=== PATIENT | male | born 1965 | race Hispanic/Latino ===

== ENCOUNTER 2023-05-16 21:48 | Inpatient (IN) | payer OTHER, BC ==
[~2023-05-16] VITALS: Ht 167.6 cm; Wt 88.5 kg
[~2023-05-16 21:48] MED LIST: SODIUM CHLORIDE FLUSH 10 ML SYR IV PRN
[2023-05-16] MEDS ORDERED: ONDANSETRON HCL INJ 2MG/ML 2ML 2 MG/ML VIAL IV STA ×2 (21:57→22:07)
[2023-05-16] MEDS ORDERED: ASPIRIN 325 MG TAB PO ONE (22:00)
[2023-05-16] MEDS ORDERED: ONDANSETRON HCL INJ 2MG/ML 2ML 2 MG/ML VIAL ONE (22:01)
[2023-05-16] MEDS ORDERED: ASPIRIN 81 MG CHEW TAB ONE (22:01)
[2023-05-16 22:08] LABS: BASOPHILS # (AUTO) 0.1 (0.0-0.1); BASOPHILS % 0.5 % (0.0-1.0); EOSINOPHILS # (AUTO) 0.1 (0.0-0.4); EOSINOPHILS % 0.5 % (0.0-6.0); HEMATOCRIT 40.5 % (38.2-49.6); HEMOGLOBIN 14.1 g/dL (14.0-18.0); LYMPHOCYTES # (AUTO) 1.6 (1.0-3.2); LYMPHOCYTES % 16.8 % (18.0-39.1); MEAN CORPUSCULAR HEMOGLOBIN 31.2 pg (28-32); MEAN CORPUSCULAR HGB CONC 34.8 g/dL (31-35); MEAN CORPUSCULAR VOLUME 89.6 fL (81-99); MONOCYTES # (AUTO) 0.4 (0.2-0.8); MONOCYTES % 4.5 % (4.4-11.3); NEUTROPHILS # (AUTO) 7.4 (2.1-6.9); NEUTROPHILS % 77.3 % (38.7-80.0); PLATELET COUNT 289 x10e3/uL (140-360); RED BLOOD COUNT 4.52 x10e6/uL (4.3-5.7)
[2023-05-16] MEDS: SODIUM CHLORIDE 0.9% 1000ML 1,000 ML IV ONE ×2 (22:13→22:17)
[2023-05-16] MEDS ORDERED: SODIUM CHLORIDE 0.9% 1000ML 1,000 ML IV ONE (22:15)
[2023-05-16] MEDS ORDERED: SODIUM CHLORIDE 0.9% 1000ML 2,650 ML IV ONE (22:15)
[2023-05-16 22:17] LABS: INR 1.01; PROTHROMBIN TIME 13.8 seconds (11.9-14.5)
[2023-05-16 22:18] LABS: PARTIAL THROMBOPLASTIN TIME 26.5 seconds (23.8-35.5)
[2023-05-16] MEDS ORDERED: CEFTRIAXONE 1 GM VIAL ONE (22:21)
[2023-05-16 22:37] LABS: ALANINE AMINOTRANSFERASE 29 IU/L (0-55); ALBUMIN 4.7 g/dL (3.5-5.0); ALBUMIN/GLOBULIN RATIO 1.2 (0.8-2.0); ALKALINE PHOSPHATASE 154 IU/L (40-150); ANION GAP 25.6 mmol/L (8-16); BLOOD UREA NITROGEN 77 mg/dL (7-26); BUN/CREATININE RATIO 12 (6-25); CARBON DIOXIDE 16 mmol/L (22-29); CHLORIDE 100 mmol/L (98-107); CREATININE, SERUM 6.64 mg/dL (0.72-1.25); GLUCOSE 132 mg/dL (74-118); SODIUM 136 mmol/L (136-145)
[2023-05-16 22:39] LABS: POTASSIUM 5.6 mmol/L (3.5-5.1)
[2023-05-16 22:54] LABS: LIPASE 116 U/L (8-78)
[2023-05-16] MEDS ORDERED: CALCIUM CHLORIDE 10% 1.36 MEQ/ML 10ML SYR IV STA (23:17)
[2023-05-16] MEDS ORDERED: FUROSEMIDE INJ 10 MG/ML 4 ML VIAL IV ONE (23:30)
[2023-05-16] MEDS ORDERED: ALBUTEROL/IPRATROPIUM 3 ML NEB NEB ONE (23:30)
[2023-05-16] MEDS ORDERED: INSULIN REGULAR, HUMAN 100 UNIT/1 ML IV ONE (23:30)
[2023-05-16] MEDS ORDERED: SOD POLYSTYRENE SULFONATE SUSP 15 GM/60 ML BTL PO ONE (23:30)
[2023-05-16] MEDS ORDERED: DEXTROSE 50% SYRINGE 50 ML IV STA (23:34)
[2023-05-16 23:35] VITALS: PULSE 90; RESP 20; O2SAT 100
[2023-05-16] MEDS ORDERED: CALCIUM CHLORIDE 13.6 MEQ in SODIUM CHLORIDE 0.9% 100 ML IV ONE (23:45)
[2023-05-16 23:50] LABS: AMPHETAMINES SCREEN,URINE NEGATIVE (NEGATIVE); BENZODIAZEPINES SCREEN,URINE NEGATIVE (NEGATIVE); CLARITY,URINE CLEAR (CLEAR); COLOR,URINE YELLOW (YELLOW); KETONES,URINE TRACE (NEGATIVE); LEUKOCYTE ESTERASE ,URINE NEGATIVE (NEGATIVE); NITRITE,URINE NEGATIVE (NEGATIVE); PHENCYCLIDINE SCREEN,URINE NEGATIVE (NEGATIVE); PROTEIN,URINE DIPSTICK 2+ (NEGATIVE); URINE UROBILINOGEN 0.2 mg/dL (0.2 - 1)
[2023-05-16] MEDS ORDERED: SODIUM CHLORIDE 0.9% 100 ML ONE (23:50)
[2023-05-16 23:56] LABS: AMORPHOUS SEDIMENT,URINE FEW (FEW); BACTERIA,URINE FEW /HPF; EPITHELIAL CELLS,URINE FEW /LPF; MUCUS,URINE MODERATE (RARE); RBC,URINE 0-5 /HPF (0-5); WBC,URINE (MAN) 0-5 /HPF (0-5)
[2023-05-17] VITALS (13 sets, daily range): BP systolic 97–116; BP diastolic 51–73; PULSE 63–94; RESP 16–25; TEMP 97.5–98.1; O2SAT 97–100
[2023-05-17] MEDS ORDERED: ONDANSETRON HCL INJ 2MG/ML 2ML 2 MG/ML VIAL IV PRN (01:15)
[2023-05-17] MEDS: SODIUM CHLORIDE 0.9% 1000ML 1,000 ML IV SCH ×2 (01:40→09:13)
[2023-05-17] MEDS ORDERED: LISINOPRIL10 MG PO (04:23)
[2023-05-17] MEDS ORDERED: ATORVASTATIN CA20 MG PO (04:23)
[2023-05-17] MEDS ORDERED: METOPROLOL SUCC25 MG PO (04:23)
[2023-05-17] MEDS ORDERED: ASPIRIN81 MG PO (04:23)
[2023-05-17] MEDS ORDERED: ACETAMINOPHEN 325 MG TAB PO PRN (08:30)
[2023-05-17 08:51] LABS: BASOPHILS % 0.3 % (0.0-1.0); EOSINOPHILS # (AUTO) 0.1 (0.0-0.4); EOSINOPHILS % 1.1 % (0.0-6.0); HEMATOCRIT 35.8 % (38.2-49.6); HEMOGLOBIN 12.2 g/dL (14.0-18.0); LYMPHOCYTES % 20.2 % (18.0-39.1); MEAN CORPUSCULAR HEMOGLOBIN 31.3 pg (28-32); MEAN CORPUSCULAR HGB CONC 34.1 g/dL (31-35); MEAN CORPUSCULAR VOLUME 91.8 fL (81-99); MONOCYTES # (AUTO) 0.5 (0.2-0.8); MONOCYTES % 5.3 % (4.4-11.3); NEUTROPHILS # (AUTO) 7.2 (2.1-6.9); NEUTROPHILS % 72.8 % (38.7-80.0); PLATELET COUNT 208 x10e3/uL (140-360); RED CELL DISTRIBUTION WIDTH 13.2 % (11.7-14.4)
[2023-05-17] MEDS: DOCUSATE SODIUM 100 MG CAP PO SCH (09:13)
[2023-05-17] MEDS: SENNOSIDES 8.6 MG TAB PO SCH (09:13)
[2023-05-17 09:23] LABS: MAGNESIUM 2.4 MG/DL (1.3-2.1)
[2023-05-17 09:26] LABS: ALBUMIN 3.4 g/dL (3.5-5.0); ALBUMIN/GLOBULIN RATIO 1.1 (0.8-2.0); ANION GAP 12.8 mmol/L (8-16); CALCIUM 7.8 mg/dL (8.4-10.2); CREATININE, SERUM 2.8 mg/dL (0.72-1.25); POTASSIUM 4.8 mmol/L (3.5-5.1)
[2023-05-17 09:51] LABS: PHOSPHORUS 4.4 MG/DL (2.3-4.7)
[2023-05-17] MEDS ORDERED: ALLOPURINOL 300 MG TAB PO ONE (11:30)
[2023-05-17] MEDS: SODIUM BICARBONATE 8.4% SYRING 150 ML in DEXTROSE 5% 1,000 ML IV SCH ×2 (12:14→19:20)
[2023-05-17 14:07] LABS: ANION GAP 11.6 mmol/L (8-16); CREATININE, SERUM 1.86 mg/dL (0.72-1.25); POTASSIUM 4.6 mmol/L (3.5-5.1)
[2023-05-18 01:12] VITALS: BP 94/61; PULSE 75; RESP 17; TEMP 98.1; O2SAT 98
[2023-05-18] MEDS: SODIUM BICARBONATE 8.4% SYRING 150 ML in DEXTROSE 5% 1,000 ML IV SCH (04:00)
[2023-05-18 05:25] VITALS: BP 99/61; PULSE 70; RESP 17; TEMP 97.8; O2SAT 100
[2023-05-18 07:23] LABS: BASOPHILS % 0.7 % (0.0-1.0); EOSINOPHILS # (AUTO) 0.2 (0.0-0.4); EOSINOPHILS % 3.3 % (0.0-6.0); HEMATOCRIT 35.4 % (38.2-49.6); HEMOGLOBIN 12.1 g/dL (14.0-18.0); LYMPHOCYTES # (AUTO) 2.1 (1.0-3.2); LYMPHOCYTES % 36.4 % (18.0-39.1); MEAN CORPUSCULAR HEMOGLOBIN 31.3 pg (28-32); MEAN CORPUSCULAR HGB CONC 34.2 g/dL (31-35); MEAN CORPUSCULAR VOLUME 91.5 fL (81-99); MONOCYTES # (AUTO) 0.4 (0.2-0.8); MONOCYTES % 6.5 % (4.4-11.3); NEUTROPHILS # (AUTO) 3.1 (2.1-6.9); NEUTROPHILS % 52.9 % (38.7-80.0); PLATELET COUNT 206 x10e3/uL (140-360); RED BLOOD COUNT 3.87 x10e6/uL (4.3-5.7); RED CELL DISTRIBUTION WIDTH 13.1 % (11.7-14.4)
[2023-05-18 07:34] VITALS: BP 106/64; PULSE 67; RESP 21; TEMP 97.3; O2SAT 98
[2023-05-18 07:45] LABS: ALBUMIN 3.1 g/dL (3.5-5.0); ANION GAP 12.6 mmol/L (8-16); CALCIUM 7.9 mg/dL (8.4-10.2); CREATININE, SERUM 0.85 mg/dL (0.72-1.25); MAGNESIUM 2.1 MG/DL (1.3-2.1); POTASSIUM 4.6 mmol/L (3.5-5.1)
[2023-05-18] MEDS: SENNOSIDES 8.6 MG TAB PO SCH (09:00)
[2023-05-18] MEDS ORDERED: ALLOPURINOL 300 MG TAB PO SCH (09:00)
[2023-05-18] MEDS: DOCUSATE SODIUM 100 MG CAP PO SCH (09:00)
[2023-05-18 11:37] VITALS: BP 119/84; PULSE 75; RESP 20; TEMP 97.4; O2SAT 98
[2023-05-18] MEDS ORDERED: ALLOPURINOL300 MG PO (12:49)
[2023-05-18] MEDS ORDERED: PROPRANOLOL HCL10 MG PO (13:47)
== END 2023-05-18 14:13 | disposition home or self-care (01) | DRG 683 ==
LOC: ER 21:50 → ERHOLD 05-17 01:20 → ICU 05-17 02:17 → MED/SURG3 05-17 12:45
PROVIDERS: ADMIT Internal Medicine; ATTEND Internal Medicine
DX: N17.0 Acute kidney failure with tubular necrosis (principal); E87.20 Acidosis, unspecified; M62.82 Rhabdomyolysis; N39.0 Urinary tract infection, site not specified; T67.5XXA Heat exhaustion, unspecified, initial encounter; X58.XXXA Exposure to other specified factors, initial encounter; I95.9 Hypotension, unspecified; E87.5 Hyperkalemia; E86.0 Dehydration; I10 Essential (primary) hypertension; M10.9 Gout, unspecified; R34 Anuria and oliguria; I25.10 Atherosclerotic heart disease of native coronary artery without angina pectoris; D64.9 Anemia, unspecified; E66.9 Obesity, unspecified; R07.9 Chest pain, unspecified; Z95.5 Presence of coronary angioplasty implant and graft; I25.2 Old myocardial infarction; Z79.82 Long term (current) use of aspirin; Z79.899 Other long term (current) drug therapy; Y93.89 Activity, other specified; Y92.89 Other specified places as the place of occurrence of the external cause; Z68.31 Body mass index [BMI] 31.0-31.9, adult
CPT/HCPCS: 36415; 51700; 71045; 74176; 76770; 80048; 80053; 80307; 81001; 82550; 82948; 83518; 83605; 83690; 83735; 83880; 84100; 84132; 84484; 84550; 85025; 85610; 85730; 87040; 87070; 87086; 87400; 93005; 94799; 96360; 99285; J0696; J2405; J7030; J7050; J7070; J7799

== ENCOUNTER → 2024-11-19 | Outpatient (REF) | payer BC ==
[~2024-11-19] MED LIST changes: +ALLOPURINOL300 MG PO; +ASPIRIN81 MG PO; +ATORVASTATIN CA20 MG PO; +LISINOPRIL10 MG PO; +METOPROLOL SUCC25 MG PO; +PROPRANOLOL HCL10 MG PO; -SODIUM CHLORIDE FLUSH 10 ML SYR IV PRN
== END ==
LOC: US 14:25
PROVIDERS: ATTEND Family Medicine
DX: R10.32 Left lower quadrant pain (principal); Z98.890 Other specified postprocedural states
CPT/HCPCS: 76882

== ENCOUNTER 2025-07-01 22:31 | Inpatient (IN) | payer BC ==
[~2025-07-01] VITALS: Ht 165.1 cm; Wt 88.5 kg
[2025-07-01 22:42] VITALS: TEMP 98.3
[2025-07-01] MEDS: SODIUM CHLORIDE 0.9% 1000ML 2,000 ML IV STA (23:02)
[2025-07-01 23:14] LABS: BASOPHILS % 0.3 % (0.0-1.0); EOSINOPHILS % 0.3 % (0.0-6.0); LYMPHOCYTES % 15.9 % (18.0-39.1); MONOCYTES % 4.4 % (4.4-11.3); NEUTROPHILS % 78.0 % (38.7-80.0); RED CELL DISTRIBUTION WIDTH 12.5 % (11.7-14.4)
[2025-07-01 23:29] LABS: EST GLOMERULAR FILTRATION RATE 21.0 ML/MIN (>=60)
[2025-07-01 23:35] LABS: AMPHETAMINES SCREEN,URINE NEGATIVE (NEGATIVE); CANNABINOIDS SCREEN,URINE NEGATIVE (NEGATIVE); COCAINE SCREEN,URINE NEGATIVE (NEGATIVE); LEUKOCYTE ESTERASE ,URINE NEGATIVE (NEGATIVE); METHADONE SCREEN, URINE NEGATIVE (NEGATIVE); OPIATES SCREEN,URINE NEGATIVE (NEGATIVE); PROTEIN,URINE DIPSTICK NEGATIVE (NEGATIVE); URINE UROBILINOGEN 0.2 mg/dL (0.2 - 1)
[2025-07-01 23:55] LABS: EPITHELIAL CELLS,URINE FEW /LPF; WBC,URINE (MAN) 0-5 /HPF (0-5)
[2025-07-02] VITALS (12 sets, daily range): BP systolic 93–128; BP diastolic 58–74; PULSE 57–65; RESP 18–19; TEMP 97.4–97.8; O2SAT 97–100
[2025-07-02] MEDS ORDERED: Morphine 4mg INJECTION 4 MG/ML INJ IV PRN (00:15)
[2025-07-02] MEDS ORDERED: ONDANSETRON HCL INJ 2MG/ML 2ML 2 MG/ML VIAL IV PRN (00:15)
[2025-07-02] MEDS: ACETAMINOPHEN 325 MG TAB PO PRN (02:01)
[2025-07-02] MEDS ORDERED: PEPCID20 MG PO (02:32)
[2025-07-02] MEDS: SODIUM BICARBONATE 8.4% VIAL 50 ML in SODIUM CHLORIDE 0.9% 1000ML 1,000 ML IV SCH (09:48)
[2025-07-02 15:38] LABS: ABG HCO3 21 mmol/L (22-26); ABG PCO2 35 mmHg (35-45); ABG PH 7.39 (7.35-7.45); ABG PO2 110 mmHg (80-105)
[2025-07-02 15:39] LABS: ABG BASE EXCESS -4.0 mmol/L (-2 - 3); ABG OXYGEN SATURATION 98.0 % (95-98); ABG TCO2 22
[2025-07-02 16:05] LABS: EST GLOMERULAR FILTRATION RATE 64.0 ML/MIN (>=60)
[2025-07-02] MEDS: ATORVASTATIN 20 MG TAB PO SCH (21:02)
[2025-07-03] VITALS: BP 119/79; PULSE 66; RESP 18; TEMP 97.7; O2SAT 97
[2025-07-03 04:00] VITALS: BP 114/70; PULSE 76; RESP 18; TEMP 98; O2SAT 99
[2025-07-03 07:29] LABS: BASOPHILS % 0.5 % (0.0-1.0); EOSINOPHILS % 1.6 % (0.0-6.0); LYMPHOCYTES % 43.6 % (18.0-39.1); MONOCYTES % 8.0 % (4.4-11.3); NEUTROPHILS % 44.8 % (38.7-80.0); RED CELL DISTRIBUTION WIDTH 12.9 % (11.7-14.4)
[2025-07-03 07:47] VITALS: BP 111/77; PULSE 60; RESP 17; TEMP 98.6; O2SAT 99
[2025-07-03 07:58] LABS: EST GLOMERULAR FILTRATION RATE 100.0 ML/MIN (>=60)
[2025-07-03] MEDS: METOPROLOL SUCCINATE 25 MG TAB XL PO SCH (08:04)
[2025-07-03 08:05] VITALS: BP 111/77; PULSE 60; RESP 17; TEMP 98.6; O2SAT 99
[2025-07-03] MEDS: ASPIRIN 81 MG CHEW TAB PO SCH (08:05)
[2025-07-03 08:33] LABS: CHOL/HDL RATIO 4.5 (3.9-4.7); LDL CHOLESTEROL 71.0 MG/DL (60-130); PHOSPHORUS 2.1 MG/DL (2.3-4.7)
[2025-07-03] MEDS ORDERED: SODIUM PHOSPHATE IN 0.9 % NACL 15 MMOL in SODIUM CHLORIDE 0.9% 250ML 250 ML IV ONE (10:00)
[2025-07-03] MEDS: SODIUM PHOSPHATE 15 MMOL in SODIUM CHLORIDE 0.9% 250ML 250 ML IV ONE (10:51)
[2025-07-03 11:16] VITALS: BP 117/78; PULSE 63; RESP 19; TEMP 97.7; O2SAT 98
[2025-07-03] MEDS ORDERED: OMEPRAZOLE40 MG PO (14:11)
[2025-07-03] MEDS: PANTOPRAZOLE SOD 40 MG TABEC PO SCH (14:45)
== END 2025-07-03 16:26 | disposition home or self-care (01) | DRG 683 ==
LOC: ER 22:37 → ERHOLD 07-02 00:06 → MED/SURG 07-02 00:57 → MED/SURG3 07-02 18:35
PROVIDERS: ADMIT Internal Medicine; ATTEND Internal Medicine
PROC: 4A033R1 Measurement of Arterial Saturation, Peripheral, Percutaneous Approach (ICD-10-PCS; principal; 2025-07-02)
DX: N17.9 Acute kidney failure, unspecified (principal); E87.1 Hypo-osmolality and hyponatremia; E87.20 Acidosis, unspecified; E86.0 Dehydration; I10 Essential (primary) hypertension; I25.10 Atherosclerotic heart disease of native coronary artery without angina pectoris; R00.1 Bradycardia, unspecified; E78.5 Hyperlipidemia, unspecified; G47.33 Obstructive sleep apnea (adult) (pediatric); R73.9 Hyperglycemia, unspecified; E83.39 Other disorders of phosphorus metabolism; R53.81 Other malaise; Z79.82 Long term (current) use of aspirin; I25.2 Old myocardial infarction; Z95.5 Presence of coronary angioplasty implant and graft; Z88.8 Allergy status to other drugs, medicaments and biological substances
CPT/HCPCS: 36415; 36600; 71045; 80048; 80053; 80061; 80307; 80320; 81001; 82550; 82805; 83036; 83690; 83735; 83880; 84100; 84439; 84443; 84484; 84550; 85025; 93005; 99283; J2470; J7030; J7050

== ENCOUNTER → 2025-09-09 | Day surgery (SDC) | payer BC ==
[2025-08-30 12:11] LABS: BASOPHILS % 0.6 % (0.0-1.0); EOSINOPHILS % 3.1 % (0.0-6.0); LYMPHOCYTES % 28.8 % (18.0-39.1); MONOCYTES % 7.1 % (4.4-11.3); NEUTROPHILS % 60.2 % (38.7-80.0); RED CELL DISTRIBUTION WIDTH 12.4 % (11.7-14.4)
[2025-08-30 12:34] LABS: INR 1.04
[2025-08-30 12:37] LABS: EST GLOMERULAR FILTRATION RATE 100.0 ML/MIN (>=60)
[~2025-09-09] MED LIST changes: +AMLODIPINE BESYL5 MG PO; +GLUCAGON FOR INJ 1 MG VIAL ONE; +HYOSCYAMINE SULFATE 0.5 MG/ML INJ ONE; +LIDOCAINE HCL 2% LOCAL INJ 5 ML SDV VIAL INJ ONE; +OMEPRAZOLE40 MG PO; +PEPCID20 MG PO; +PHENYLEPHRINE HCL 1% 10 MG/ML VIAL ONE; +PROPOFOL IV EMULSION 50 ML IV ONE
[2025-09-09 14:12] VITALS: TEMP 97
[2025-09-09 14:35] VITALS: BP 118/65; PULSE 64; RESP 16; O2SAT 99
== END | disposition home or self-care (01) ==
LOC: OR 10:33
PROVIDERS: ATTEND Internal Medicine Gastroenterology
DX: Z09 Encounter for follow-up examination after completed treatment for conditions other than malignant neoplasm (principal); D12.2 Benign neoplasm of ascending colon; D12.3 Benign neoplasm of transverse colon; K62.1 Rectal polyp; K64.8 Other hemorrhoids; K21.9 Gastro-esophageal reflux disease without esophagitis; G47.33 Obstructive sleep apnea (adult) (pediatric); I25.10 Atherosclerotic heart disease of native coronary artery without angina pectoris; I25.2 Old myocardial infarction; I10 Essential (primary) hypertension; Z71.89 Other specified counseling; E78.5 Hyperlipidemia, unspecified; F41.9 Anxiety disorder, unspecified; F32.A Depression, unspecified; Z88.8 Allergy status to other drugs, medicaments and biological substances; Z01.810 Encounter for preprocedural cardiovascular examination; Z01.812 Encounter for preprocedural laboratory examination; Z79.82 Long term (current) use of aspirin; Z79.899 Other long term (current) drug therapy; Z68.31 Body mass index [BMI] 31.0-31.9, adult; Z71.3 Dietary counseling and surveillance; Z95.5 Presence of coronary angioplasty implant and graft
CPT/HCPCS: 36415; 45385; 80048; 85025; 85610; 85730; 93005; J1610; J1980; J2003; J2371; J2704; 45378

== ENCOUNTER → 2025-09-16 | Outpatient (REF) | payer BC ==
[~2025-09-16] MED LIST changes: -GLUCAGON FOR INJ 1 MG VIAL ONE; -HYOSCYAMINE SULFATE 0.5 MG/ML INJ ONE; -LIDOCAINE HCL 2% LOCAL INJ 5 ML SDV VIAL INJ ONE; -PHENYLEPHRINE HCL 1% 10 MG/ML VIAL ONE; -PROPOFOL IV EMULSION 50 ML IV ONE
== END ==
LOC: US 13:34
PROVIDERS: ATTEND Internal Medicine Gastroenterology
DX: R74.8 Abnormal levels of other serum enzymes (principal)
CPT/HCPCS: 76700